=== PATIENT | female | born 1990 | race Caucasian/White ===

== ENCOUNTER 2021-08-24 07:12 | Day surgery (SDC) | payer OTHER ==
[~2021-08-24] VITALS: Ht 170.2 cm; Wt 63.7 kg
[2021-08-24] MEDS ORDERED: CELEXA10 MG PO (07:35)
[2021-08-24] MEDS ORDERED: ADDERALL XR20 MG PO (07:35)
[2021-08-24] MEDS ORDERED: PROAIR HFA0.09 MG/AC IH (07:36)
[2021-08-24] MEDS ORDERED: RT ADVAIR 128 DISKUS IH (07:36)
[2021-08-24] MEDS ORDERED: ADDERALL15 MG PO (07:36)
[2021-08-24] MEDS ORDERED: SINGULAIR 110 MG/TAB PO (07:36)
[2021-08-24 07:37] VITALS: BP 111/78; PULSE 94; TEMP 98.1
[2021-08-24 08:40] VITALS: BP 98/66; PULSE 70; TEMP 98.1
[2021-08-24 08:45] VITALS: BP 85/62; PULSE 82
[2021-08-24 09:00] VITALS: BP 96/61; PULSE 78
[2021-08-24 09:15] VITALS: BP 98/60; PULSE 97
--- NOTE | 2021-08-24 09:45 | NUR ---
Pt has returned post procedure to [facility]. A&O. VSS-see flowsheet. Tolerated oral intake. Dr Mcgee in to see pt. IV removed, pressure dressing applied. Pt dressed independently. Discharge teaching completed, pt verbalized understanding. Taken via wheelchair to private vehicle for dc home with family to drive.
== END 2021-08-24 09:45 | disposition home or self-care (01) ==
LOC: SDCO 07:12
DX: K57.32 Diverticulitis of large intestine without perforation or abscess without bleeding (principal); K62.89 Other specified diseases of anus and rectum; F17.210 Nicotine dependence, cigarettes, uncomplicated
CPT/HCPCS: J2704; J7120

== ENCOUNTER 2021-11-20 02:53 | Emergency (ER) | payer OTHER ==
[~2021-11-20] VITALS: Ht 170.2 cm; Wt 59.1 kg
[~2021-11-20 02:53] MED LIST: ADDERALL XR20 MG PO; ADDERALL15 MG PO; CELEXA10 MG PO; PROAIR HFA0.09 MG/AC IH; RT ADVAIR 128 DISKUS IH; SINGULAIR 110 MG/TAB PO
[2021-11-20 02:56] VITALS: TEMP 98.1
[2021-11-20] MEDS ORDERED: FLONASE NASAL S16 GM NS (04:01)
[2021-11-20] MEDS ORDERED: AMOXICILLIN 8751 TAB PO (04:01)
[2021-11-20 04:15] VITALS: BP 128/78; PULSE 80
== END 2021-11-20 04:15 | disposition home or self-care (01) ==
LOC: COL.ER 02:53
DX: H66.92 Otitis media, unspecified, left ear (principal); J06.9 Acute upper respiratory infection, unspecified; Z28.310 Unvaccinated for COVID-19
CPT/HCPCS: J8540